=== PATIENT | female | born 1935 ===

== ENCOUNTER 2017-04-11 06:04 | Observation (INO) | payer MEDICARE ==
[~2017-04-11 06:04] MED LIST: Buffered Lidocaine 0.9% SYRIN* 5 ML/SYR SYRINGE INTRADERM ONE; Dexamethasone IV* 4 MG/ML 1 ML (4 MG) IV SLOW PU ONE; Famotidine IV* 10 MG/ML 2 ML (20 mg) IV ONE
[2017-04-11] MEDS ORDERED: Buffered Lidocaine 0.9% SYRIN* 5 ML/SYR SYRINGE ONE (06:15)
[2017-04-11] MEDS ORDERED: Dexamethasone IV* 4 MG/ML 1 ML (4 MG) ONE (06:15)
[2017-04-11] MEDS ORDERED: Famotidine IV* 10 MG/ML 2 ML (20 mg) ONE (06:15)
[2017-04-11] MEDS ORDERED: ceFAZolin 2 GM in 100 MLS NS (*) BAG IVPB ONE (06:15)
[2017-04-11] MEDS ORDERED: Thrombin 5,000 UNITS* 1 APPLIC KIT - topical use - TOPICAL ONE (06:54)
[2017-04-11] MEDS ORDERED: Bacitracin IV* 50,000 UNITS INJ ONE (06:54)
[2017-04-11] MEDS ORDERED: Lidocaine 1% MPF wEPI 200,000* 30 ML SDV ONE (06:54)
[2017-04-11] MEDS ORDERED: fentaNYL* 50 MCG/ML 2 ML VIAL (100 MCG VIAL) ONE (07:14)
[2017-04-11] MEDS ORDERED: Phenylephrine INJ* 10 MG/ML 1 ML VIAL (10 MG) ONE (08:16)
[2017-04-11] MEDS ORDERED: Ondansetron INJ* 2 MG/ML VIAL ONE (08:16)
[2017-04-11] MEDS ORDERED: Propofol* 10 MG/ML 20 ML BTL IV PUSH ONE (08:16)
[2017-04-11] MEDS ORDERED: Ketorolac INJ* 30 MG/ML 1 ML VIAL ONE (08:16)
[2017-04-11] MEDS ORDERED: Succinylcholine* 20 MG/ML 10 ML VIAL ONE (08:16)
[2017-04-11] MEDS ORDERED: Lidocaine 2% PF * 5 ML VIAL ONE (08:18)
[2017-04-11] MEDS ORDERED: Naloxone* 0.4 MG/ML 1 ML VIAL IV PRN (08:27)
[2017-04-11] MEDS ORDERED: fentaNYL* 50 MCG/ML 2 ML VIAL (100 MCG VIAL) IV PRN (08:27)
[2017-04-11] MEDS ORDERED: Magnesium Hydroxide LIQ* 30 ML UDC PO PRN (08:50)
[2017-04-11] MEDS ORDERED: HYDROcodone/ACETAMIN 5-325 MG* 1 TAB PO PRN (08:50)
[2017-04-11] MEDS ORDERED: Ondansetron INJ* 2 MG/ML VIAL IV PRN (08:50)
[2017-04-11] MEDS ORDERED: Acetaminophen TAB* 325 MG PO PRN (08:50)
[2017-04-11] MEDS ORDERED: Zolpidem TAB* 5 MG PO PRN (08:54)
[2017-04-11] MEDS ORDERED: LOSARTAN PO SCH (09:00)
[2017-04-11] MEDS ORDERED: HYDROCHLOROTHIAZIDE PO SCH (09:00)
[2017-04-11] MEDS ORDERED: DiMENhydriNATE IV* 50 MG/ML VIAL IV PUSH PRN (09:44)
[2017-04-11] MEDS ORDERED: DiMENhydriNATE IV* 50 MG/ML VIAL ONE (09:47)
[2017-04-11] MEDS ORDERED: Hydrochlorothiazide TAB* 25 MG PO ONE (10:00)
[2017-04-11] MEDS ORDERED: Losartan TAB* 25 MG PO ONE (10:00)
--- NOTE | 2017-04-11 10:00 | RAD ---
Indication: Lumbar discectomy at L4-L5. Single lateral view of the lumbar spine taken in the operating room demonstrates localization of the L4-L5 interspace. IMPRESSION: Localization of the L4-L5 interspace.
[2017-04-11] MEDS: Propranolol TAB* 40 MG PO SCH (13:12)
[2017-04-11] MEDS ORDERED: Losartan TAB* 25 MG PO SCH (14:00)
[2017-04-11] MEDS ORDERED: Hydrochlorothiazide TAB* 25 MG PO SCH (14:00)
--- NOTE | 2017-04-12 07:46 | PN ---
Progress Note - Progress Note Date of Service: 04/12/17 SOAP: Subjective: []POD # 1 Doing well Pre op leg pain relieved Objective: []Neuro intact Dressing intact Minimal drain output Assessment: [] Satis post op course Plan: []D/C today D/C Instructions given
[2017-04-12] MEDS: Propranolol TAB* 40 MG PO SCH (10:26)
[2017-04-12 12:35] VITALS: BP 130/63
--- NOTE | 2017-04-12 13:20 | OP ---
DATE OF OPERATION: 04/11/17 - ROOM #334 DATE OF : 37 PRIMARY SURGEON: Adithya Smith MD [employer] OFFICER: FILIPE Perdue ANESTHESIA: General. PRE-OP DIAGNOSES: Lumbar spinal stenosis L4-5, herniated nucleus pulposus L4-5 on the right. POST-OP DIAGNOSES: Lumbar spinal stenosis L4-5, synovial cyst L4-5 on the right. OPERATIVE PROCEDURE: Decompressive lumbar laminectomy L4-5 with excision of synovial cyst L4-5 on the right with microdissection. DESCRIPTION OF PROCEDURE: After satisfactory general anesthesia was obtained, the patient was placed on the operating table in a prone position with the chest supported on the Lamont frame and the back slightly flexed. The lumbar region was then clipped, prepped and draped in a sterile manner for lumbar laminectomy and a skin incision outlined from L4 to L5. This incision was infiltrated with 1% Xylocaine with epinephrine after which it was turned down sharply to the level of the lumbar fascia. The fascia was divided along the spinous processes of L4 and L5 and the paraspinal musculature was stripped away from these posterior elements using the periosteal elevator and monopolar cautery. An intraoperative x-ray was obtained verifying proper interspace localization after which a decompression was carried out at L4-5 by removing the spinous process of L4 and the superior aspect of spinous process of L5 with a Leksell rongeur. The remaining portion of the base of the spinous process and inferior aspect of the lamina of L4 was then thinned out with a Midas Ian drill and a decompression was carried out. This was carried superiorly until the attachment of the ligamentum flavum was taken down. There was noted to be thickening of the ligamentum flavum at this level contributing to an acquired spinal stenosis. A generous decompression was carried out with foraminotomy carried out initially on the left side. On the right side, there was noted to be a synovial cyst projecting facet joint complex, has been compressing the dura over the L5 nerve root. The operating microscope was brought into the field and utilizing microdissection. The synovial cyst was dissected free from the dura to which it was attached. It was then removed with Kerrison rongeurs and cyst tissue was sent for permanent pathology. The disk was palpated at this level and was noted to be heaped up, but not soft and was not disturbed. At the conclusion of the decompression of the nerves roots readily with both L5 nerve roots. The wound was then thoroughly irrigated after which a drain was placed in the epidural space and tunneled out towards the left side. The fascia was then reapproximated with 0 Vicryl suture, the subcutaneous tissue was closed with 3-0 Vicryl suture and the skin closed with skin clips. The estimated blood loss was less than 50 cc and final sponge, padding and needle counts were correct. The patient was taken to the recovery room, extubated and in stable condition. [id number]/[facility] #: [id number] MTDD
== END 2017-04-12 11:30 | disposition home or self-care (01) ==
LOC: OR 06:04 → SSU 11:04
PROVIDERS: ADMIT Neurological Surgery; ATTEND Neurological Surgery
PROC: 0SB20ZZ Excision of Lumbar Vertebral Disc, Open Approach (ICD-10-PCS; 2017-04-11)
PROC: 01NB0ZZ Release Lumbar Nerve, Open Approach (ICD-10-PCS; principal; 2017-04-11 07:45)
DX: M51.16 Intervertebral disc disorders with radiculopathy, lumbar region (principal); M48.061 Spinal stenosis, lumbar region without neurogenic claudication
CPT/HCPCS: 72100; 88304; A9270-GY; G0378; J0330; J1100; J1240; J1885; J2001; J2405; J2704; J3010